=== PATIENT | female | born 1935 | race Hispanic/Latino ===

== ENCOUNTER → 2018-08-15 | Outpatient (CLI) | payer OTHER ==
[~2018-08-15] MED LIST: AMLO10TA7 PO; ASPI-1197 PO; ATOR10 PO; CLON0.1T PO; DOCU100T PO; FOLI1TAB85 PO; HYDR-4153 PO
== END | disposition home or self-care (01) ==
LOC: RAH 08:37
PROVIDERS: ATTEND Family Medicine
DX: I08.1 Rheumatic disorders of both mitral and tricuspid valves (principal); I27.20 Pulmonary hypertension, unspecified
CPT/HCPCS: 71250; 93306

== ENCOUNTER 2018-12-14 11:39 | Day surgery (SDC) | payer OTHER ==
[~2018-12-14] VITALS: Ht 152.4 cm; Wt 59.4 kg
[2018-12-14 12:45] VITALS: BP 116/57
[2018-12-14 13:11] LABS: BASOPHILS % (AUTO) 0.8 % (0.0-5.0); EOSINOPHILS % (AUTO) 8.9 % (0.0-8.0); HEMATOCRIT 32.3 % (36-48); LYMPHOCYTES % (AUTO) 14.3 % (21.0-51.0); MEAN CORPUSCULAR HEMOGLOBIN 34.7 pg (27.0-33.0); MEAN CORPUSCULAR HGB CONC 33.2 g/dL (32.0-36.0); MEAN CORPUSCULAR VOLUME 104.5 fL (79-99); MONOCYTES % (AUTO) 8.5 % (3.0-13.0); NEUTROPHILS % (AUTO) 67.5 % (40.0-77.0); NUCLEATED RED BLOOD CELLS 0.1 % (0.0-0.19); PLATELET COUNT (AUTO) 131 K/uL (130-400); RED BLOOD CELL COUNT(AUTO) 3.09 MIL/uL (4.00-5.50); RED CELL DISTRIBUTION WIDTH 14.9 % (11.0-15.5); WHITE BLOOD COUNT (AUTO) 6.5 K/uL (4.8-10.8)
[2018-12-14 13:22] LABS: INR 1.02 (0.85-1.15); PARTIAL THROMBOPLASTIN TIME 27.5 SEC (26.3-35.5); PROTHROMBIN TIME 10.7 SEC (9.6-11.6)
[2018-12-14 13:23] LABS: POTASSIUM 4.4 mmol/L (3.5-5.1)
[2018-12-14 13:26] LABS: CREATININE 7.9 mg/dL (0.5-1.5)
--- NOTE | 2018-12-14 13:45 | NUR ---
PATIENT TRANSFERRED PATIENT TAKEN TO BULLDOZER MECHANIC FOR FISTULOGRAM PROCEDURE BY RAZ NEGRON. DAUGHTER WAITING AT BEDSIDE.
[2018-12-14] MEDS ORDERED: IODIXANOL 320 MG/ML 100 ML VIAL ONE (13:53)
[2018-12-14] MEDS ORDERED: HEPARIN SODIUM 1000UNIT/ML 10ML VIAL ONE (13:53)
[2018-12-14] MEDS ORDERED: LIDOCAINE HCL 1% MDV 50ML VIAL ONE (13:54)
[2018-12-14] MEDS ORDERED: SODIUM BICARB 50MEQ 50ML VIAL ONE (13:55)
[2018-12-14 15:45] VITALS: BP 123/47
--- NOTE | 2018-12-14 15:45 | NUR ---
PATIENT RETURNED PATIENT BROUGHT BACK FROM THERAPEUTIC RECREATION ASSISTANT VIA BED BY RAZ NEGRON. PATIENT AAOX3, RESPIRATIONS UNLABORED, NO C/O PAIN. DRESSINF TO LEFT UPPER ARM DRY AND INTACT, NO REDNESS/SWELLING/BLEEDING NOTED. POSITIVE BRUIT AND THRILL NOTED TO LEFT FISTULA.
[2018-12-14 16:00] VITALS: BP 123/50
[2018-12-14 16:15] VITALS: BP 121/49
[2018-12-14 16:30] VITALS: BP 122/46
--- NOTE | 2018-12-14 16:30 | NUR ---
DISCHARGE INSTRUCTIONS: EXPLAINED DISCHARGE INSTRUCTIONS TO PATIENT AND PATIENT'S DAUGHTER. PROVIDED HANDOUTS AND ANSWERED ALL QUESTIONS/CONCERNS.
--- NOTE | 2018-12-14 16:32 | NUR ---
HANDOFF REPORT REPORT GIVEN TO KRITSIN COX RN USING SBAR. ALL QUESTIONS/CONCERNS ADDRESSED.
[2018-12-14 17:00] VITALS: BP 130/52
== END 2018-12-14 17:10 | disposition home or self-care (01) ==
LOC: DAH 11:39
PROVIDERS: ATTEND Family Medicine
DX: T82.858A Stenosis of other vascular prosthetic devices, implants and grafts, initial encounter (principal); Y83.8 Other surgical procedures as the cause of abnormal reaction of the patient, or of later complication, without mention of misadventure at the time of the procedure; I13.2 Hypertensive heart and chronic kidney disease with heart failure and with stage 5 chronic kidney disease, or end stage renal disease; I50.42 Chronic combined systolic (congestive) and diastolic (congestive) heart failure; E11.22 Type 2 diabetes mellitus with diabetic chronic kidney disease; N18.6 End stage renal disease; D63.1 Anemia in chronic kidney disease; I25.10 Atherosclerotic heart disease of native coronary artery without angina pectoris; E78.5 Hyperlipidemia, unspecified; Z98.890 Other specified postprocedural states; Z98.49 Cataract extraction status, unspecified eye; Z99.2 Dependence on renal dialysis; Z79.4 Long term (current) use of insulin; Z79.899 Other long term (current) drug therapy; Z79.01 Long term (current) use of anticoagulants; Z79.82 Long term (current) use of aspirin; Z83.3 Family history of diabetes mellitus
CPT/HCPCS: 36415; 36902; 80048; 82948 ×2; 85025; 85610; 85730; A4606; C1725; C1769 ×3; C1894 ×3; J1644 ×2; J3490 ×2; Q9967

== ENCOUNTER 2018-12-20 14:33 | Observation (INO) | payer OTHER ==
[~2018-12-20] VITALS: Ht 154.9 cm; Wt 59.6 kg
[2018-12-20 15:48] LABS: BASOPHILS % (AUTO) 0.7 % (0.0-5.0); EOSINOPHILS % (AUTO) 5.7 % (0.0-8.0); HEMATOCRIT 29.5 % (36-48); LYMPHOCYTES % (AUTO) 9.6 % (21.0-51.0); MEAN CORPUSCULAR HEMOGLOBIN 35.1 pg (27.0-33.0); MEAN CORPUSCULAR HGB CONC 33.7 g/dL (32.0-36.0); MEAN CORPUSCULAR VOLUME 104.1 fL (79-99); MONOCYTES % (AUTO) 9.8 % (3.0-13.0); NEUTROPHILS % (AUTO) 74.2 % (40.0-77.0); PLATELET COUNT (AUTO) 124 K/uL (130-400); RED BLOOD CELL COUNT(AUTO) 2.83 MIL/uL (4.00-5.50); RED CELL DISTRIBUTION WIDTH 15.2 % (11.0-15.5); WHITE BLOOD COUNT (AUTO) 6.1 K/uL (4.8-10.8)
[2018-12-20] MEDS ORDERED: SODIUM CHLORIDE 0.9% 250 ML IV ONE (15:49)
[2018-12-20] MEDS ORDERED: FENTANYL CITRATE PF 50 MCG/1 ML 2ML VIAL ONE ×3 (15:49→20:23)
[2018-12-20 15:51] LABS: CREATININE 3.4 mg/dL (0.5-1.5); POTASSIUM 3.5 mmol/L (3.5-5.1)
[2018-12-20 15:56] LABS: ALBUMIN 3.7 g/dL (3.5-5.0); BILIRUBIN,TOTAL 0.9 mg/dL (0.2-1.0); TOTAL PROTEIN, SERUM 7.1 g/dL (6.0-8.3)
[2018-12-20 16:02] LABS: INR 1.01 (0.85-1.15); PROTHROMBIN TIME 10.6 SEC (9.6-11.6)
[2018-12-20 16:39] LABS: PARTIAL THROMBOPLASTIN TIME 26.8 SEC (26.3-35.5)
[2018-12-20] MEDS ORDERED: HEPARIN SODIUM 1000UNIT/ML 10ML VIAL ONE (18:52)
[2018-12-20] MEDS ORDERED: NITROGLYCERIN 5 MG/ML 10 ML VIAL IV ONE (18:52)
[2018-12-20] MEDS ORDERED: IODIXANOL 320 MG/ML 100 ML VIAL ONE (18:53)
[2018-12-20] MEDS ORDERED: LIDOCAINE HCL 2% 20ML ONE (18:53)
[2018-12-20] MEDS ORDERED: HEPARIN 25000 UNITS/250 ML D5W 250 ML IV ONE (19:19)
[2018-12-20] MEDS ORDERED: HEPARIN SODIUM 5000UNIT/ML 1ML VIAL ONE (19:19)
[2018-12-20] MEDS ORDERED: HEPARIN 25,000 UNITS/250 ML IV PRN (20:15)
[2018-12-20] MEDS ORDERED: ONDANSETRON HCL 4 MG/2 ML VIAL IVP PRN (20:30)
[2018-12-20] MEDS ORDERED: HYDRALAZINE HCL 20 MG/ML VIAL IV PRN (20:30)
[2018-12-20] MEDS ORDERED: FENTANYL CITRATE PF 50 MCG/1 ML 2ML VIAL IVP PRN (20:30)
[2018-12-20 20:45] VITALS: BP 119/47
[2018-12-20] MEDS ORDERED: HEPARIN SODIUM 5000UNIT/ML 1ML VIAL IV PRN (20:45)
[2018-12-20 23:10] VITALS: BP 124/46
[2018-12-20] MEDS ORDERED: HYDR100T27 PO (23:44)
[2018-12-20] MEDS ORDERED: FLUT16H NS (23:44)
[2018-12-21 02:39] LABS: HEMATOCRIT 28.6 % (36-48); MEAN CORPUSCULAR HEMOGLOBIN 35.2 pg (27.0-33.0); MEAN CORPUSCULAR HGB CONC 33.3 g/dL (32.0-36.0); MEAN CORPUSCULAR VOLUME 105.7 fL (79-99); PLATELET COUNT (AUTO) 108 K/uL (130-400); RED BLOOD CELL COUNT(AUTO) 2.71 MIL/uL (4.00-5.50); RED CELL DISTRIBUTION WIDTH 15.3 % (11.0-15.5); WHITE BLOOD COUNT (AUTO) 6.5 K/uL (4.8-10.8)
[2018-12-21 03:10] VITALS: BP 129/50
[2018-12-21 03:14] LABS: ALBUMIN 3.5 g/dL (3.5-5.0); BILIRUBIN,TOTAL 0.8 mg/dL (0.2-1.0); CREATININE 4.5 mg/dL (0.5-1.5); MAGNESIUM 2.2 mg/dL (1.80-2.40); PHOSPHORUS 3.7 mg/dL (2.5-4.9); POTASSIUM 4.3 mmol/L (3.5-5.1); TOTAL PROTEIN, SERUM 6.7 g/dL (6.0-8.3)
[2018-12-21 03:21] LABS: TROPONIN I 1.29 ng/mL (0.00-0.06)
[2018-12-21 03:28] LABS: PLATELET MORPHOLOGY COMMENT LARGE PLTS PRESENT
[2018-12-21 08:02] VITALS: BP 137/53
[2018-12-21 11:55] VITALS: BP 137/49
[2018-12-21] MEDS ORDERED: LACTULOSE 20 GM/30 ML UDCUP PO PRN (14:45)
[2018-12-21 15:29] VITALS: BP 130/46
[2018-12-21 20:29] VITALS: BP 144/56
[2018-12-21] MEDS ORDERED: IOHEXOL 350 MG/ML 100ML INFUS..BTL IV ONE (21:35)
[2018-12-21] MEDS ORDERED: IOHEXOL-350 75 ML VIAL IV ONE (21:36)
[2018-12-21] MEDS ORDERED: IOHEXOL-350 50ML VIAL IV ONE (21:36)
[2018-12-21 23:21] VITALS: BP 97/48
[2018-12-22] MEDS: ACETAMINOPHEN 325 MG TAB PO PRN ×2 (01:12→16:35)
[2018-12-22 04:14] VITALS: BP 115/49
[2018-12-22 04:51] LABS: MEAN CORPUSCULAR HEMOGLOBIN 35.9 pg (27.0-33.0); MEAN CORPUSCULAR HGB CONC 34.5 g/dL (32.0-36.0); NUCLEATED RED BLOOD CELLS 0.1 % (0.0-0.19); PLATELET COUNT (AUTO) 112 K/uL (130-400); RED BLOOD CELL COUNT(AUTO) 2.79 MIL/uL (4.00-5.50); RED CELL DISTRIBUTION WIDTH 15.3 % (11.0-15.5); WHITE BLOOD COUNT (AUTO) 7.6 K/uL (4.8-10.8)
[2018-12-22 05:04] LABS: BASOPHILS % (MANUAL) 2 % (0-2); EOSINOPHILS % (MANUAL) 2 % (1-6); LYMPHOCYTES % (MANUAL) 6 % (22-44); MONOCYTES % (MANUAL) 7 % (2-9); SEGMENTED NEUTROPHILS % 83 % (40-70)
[2018-12-22 05:05] LABS: MAN.DIFF COMMENT-IMPRESSION MANUAL DIFFERENTIAL; PLATELET MORPHOLOGY COMMENT SLIGHTLY DECREASED
[2018-12-22 05:06] LABS: CREATININE 6.6 mg/dL (0.5-1.5); PHOSPHORUS 5.6 mg/dL (2.5-4.9); POTASSIUM 4.7 mmol/L (3.5-5.1)
[2018-12-22 07:00] VITALS: BP 147/43
[2018-12-22] MEDS ORDERED: ASPIRIN 81MG TAB.CHEW PO SCH (09:00)
[2018-12-22] MEDS ORDERED: CLOPIDOGREL BISULFATE 75 MG TAB PO SCH (09:00)
[2018-12-22 11:00] VITALS: BP 120/49
[2018-12-22] MEDS: CILOSTAZOL 100 MG TAB PO SCH ×2 (12:05→22:17)
[2018-12-22 16:00] VITALS: BP 109/48
[2018-12-22] MEDS ORDERED: LIDOCAINE/PRILOCAINE CREAM 5GM TUBE TP STA (17:17)
[2018-12-22 19:50] VITALS: BP 153/67
== END 2018-12-22 23:45 | disposition home or self-care (01) ==
LOC: EDH 14:33 → INTOOBSV 19:32 → EDHIP 19:32 → 2AH 20:54
PROVIDERS: ADMIT Internal Medicine Critical Care Medicine; ATTEND Internal Medicine Critical Care Medicine
DX: I99.8 Other disorder of circulatory system (principal); I12.0 Hypertensive chronic kidney disease with stage 5 chronic kidney disease or end stage renal disease; N18.6 End stage renal disease; E11.22 Type 2 diabetes mellitus with diabetic chronic kidney disease; E11.21 Type 2 diabetes mellitus with diabetic nephropathy; E11.51 Type 2 diabetes mellitus with diabetic peripheral angiopathy without gangrene; D64.9 Anemia, unspecified; E78.5 Hyperlipidemia, unspecified; I25.10 Atherosclerotic heart disease of native coronary artery without angina pectoris; I25.2 Old myocardial infarction; I25.5 Ischemic cardiomyopathy; I27.20 Pulmonary hypertension, unspecified; I34.0 Nonrheumatic mitral (valve) insufficiency; Z95.5 Presence of coronary angioplasty implant and graft; Z99.2 Dependence on renal dialysis; Z79.899 Other long term (current) drug therapy
CPT/HCPCS: 36415; 70450; 71045; 75635; 80048; 80053; 82550; 82948; 83735; 83874; 84100; 84484; 85025; 85027; 85610; 85730; 90935; 93005; 93926; 96365; 96375; 99291; G0257; G0378; J1644; J3010; J3490; J7030; Q9967

== ENCOUNTER 2019-01-14 06:28 | Inpatient (IN) | payer OTHER ==
[2019-01-11 09:31] VITALS: BP 137/58
[2019-01-11 09:48] LABS: CREATININE 4.4 mg/dL (0.5-1.5); POTASSIUM 3.7 mmol/L (3.5-5.1)
[2019-01-11 09:57] LABS: INR 1.03 (0.85-1.15); PARTIAL THROMBOPLASTIN TIME 26.3 SEC (26.3-35.5); PROTHROMBIN TIME 10.8 SEC (9.6-11.6)
[2019-01-11 10:35] LABS: BASOPHILS % (AUTO) 1.3 % (0.0-5.0); EOSINOPHILS % (AUTO) 1.2 % (0.0-8.0); LYMPHOCYTES % (AUTO) 6.8 % (21.0-51.0); MEAN CORPUSCULAR HEMOGLOBIN 35.8 pg (27.0-33.0); MEAN CORPUSCULAR HGB CONC 33.6 g/dL (32.0-36.0); MEAN CORPUSCULAR VOLUME 106.5 fL (79-99); MONOCYTES % (AUTO) 8.4 % (3.0-13.0); NEUTROPHILS % (AUTO) 82.3 % (40.0-77.0); NUCLEATED RED BLOOD CELLS 0.1 % (0.0-0.19); PLATELET COUNT (AUTO) 122 K/uL (130-400); RED BLOOD CELL COUNT(AUTO) 2.82 MIL/uL (4.00-5.50); RED CELL DISTRIBUTION WIDTH 15.2 % (11.0-15.5); WHITE BLOOD COUNT (AUTO) 6.1 K/uL (4.8-10.8)
--- NOTE | 2019-01-11 15:21 | NUR ---
ABNORMAL LABS ABNORMAL LABS REPORTED TO Ronen CENTENO FOR DR. SOLOMON. HGB 10.1, HCT 30.0, PLT 122, BUN 35, CREAT 4.4. NO FURTHER ORDERS GIVEN, MAY PROCEED WITH PLANNED PROCEDURE. ALSO NOTIFIED TARYN RENDON PT UNABLE TO OBTAIN URINE SPECIMEN.
[2019-01-11 16:35] VITALS: BP 137/58
[~2019-01-14] VITALS: Ht 149.9 cm; Wt 62.6 kg
[2019-01-14] VITALS (57 sets, daily range): BP systolic 73–151; BP diastolic 28–98
[~2019-01-14 06:28] MED LIST changes: -AMLO10TA7 PO; -ATOR10 PO; +CILO50TA PO; -CLON0.1T PO; +CLOP75TA14 PO; +ESOM40CA54 PO; +HYDR-4060 PO; -HYDR-4153 PO; +HYDR-4154 PO; +INSLAN SQ; +NITR0.4T50 SL; +SODIUM CHLORIDE 0.9% 500ML 500 ML IV SCH
[2019-01-14] MEDS ORDERED: SODIUM CHLORIDE 0.9% 1000ML 1,000 ML IV ONE (07:23)
--- NOTE | 2019-01-14 07:30 | NUR ---
ASSESSMENT HX: CONSTIPATION, TAKING MIRALAX AT HOME. MULTIPLE AREAS OF BRUISING TO UPPER EXTREMITIES (PT ON BLOOD THINNERS). DISTAL ANTERIOR RLE WITH REDNESS/FOOT WARM TO TOUCH. 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
--- NOTE | 2019-01-14 07:30 | NUR ---
PRE-PROCEDURE RECEIVED FROM HOME VIA W/C TO DAY 16 FOR PERIPHERAL ANGIOGRAM WITH FIRING PIN GAUGER/STENT RIGHT LOWER EXTREMITY ACCOMPANIED BY DAUGHTERS. AWAKE IN NO ACUTE DISTRESS. DENIES PAIN AT PRESENT TIME. CONNECTED TO CONTINUOUS CARDIOPULMONARY MONITORING. SIDE RAILS UP X2, BED IN LOWEST POSITION, AND CALL LIGHT W/IN REACH.
[2019-01-14] MEDS ORDERED: CALC667C10 PO (09:06)
[2019-01-14] MEDS ORDERED: PEG15DRO4 OP (09:06)
[2019-01-14] MEDS ORDERED: MELA5CAP PO (09:08)
[2019-01-14] MEDS ORDERED: POLY17PO4 PO (09:11)
[2019-01-14] MEDS ORDERED: FLUT16H NASAL (09:16)
[2019-01-14] MEDS ORDERED: HEPARIN SODIUM 1000UNIT/ML 10ML VIAL ONE (10:01)
[2019-01-14] MEDS ORDERED: NITROGLYCERIN 5 MG/ML 10 ML VIAL IV ONE (10:01)
[2019-01-14] MEDS ORDERED: IODIXANOL 320 MG/ML 100 ML VIAL ONE (10:01)
[2019-01-14] MEDS ORDERED: LIDOCAINE HCL 2% 20ML ONE (10:02)
[2019-01-14] MEDS ORDERED: MIDAZOLAM HCL 1 MG/ML 2ML VIAL ONE ×2 (10:07→19:07)
[2019-01-14] MEDS ORDERED: FENTANYL CITRATE PF 50 MCG/1 ML 2ML VIAL ONE ×3 (10:07→16:25)
--- NOTE | 2019-01-14 10:11 | NUR ---
PROCEDURE TRANSFERRED TO OFFICE RUNNER VIA BED FOR PERIPHERAL ANGIOGRAM/FANS CLERK/STENT RIGHT LOWER EXTREMITY. UNABLE TO GET IV WILL BE ATTEMPTED IN OFFICE RUNNER WITH ULTRASOUND.
[2019-01-14] MEDS ORDERED: HYDRALAZINE HCL 20 MG/ML VIAL IV PRN (11:45)
[2019-01-14] MEDS ORDERED: METOPROLOL TARTRATE 1 MG/ML 5ML VIAL IV PRN (11:45)
[2019-01-14] MEDS ORDERED: DEXTROSE 50%-WATER 50 ML DISP.SYRIN IV PRN (11:45)
[2019-01-14] MEDS ORDERED: ACETAMINOPHEN-CODEINE 300/30MG TAB PO PRN (11:45)
[2019-01-14] MEDS ORDERED: GLUCAGON 1MG KIT 1 MG ML IM PRN ×2 (11:45→13:30)
--- NOTE | 2019-01-14 12:00 | NUR ---
POST-PROCEDURE RECEIVED BACK FROM CUST[employer]S [facility]OKER VIA BED BY RAZ FLYNN S/P ABD. AORTOGRAM, BLE RUNOFF WITH STENT PLACEMENT/6F SHEATH TO LEFT GROIN, SITE WITH LARGE HEMATOMA AND SWELLING/MANUAL PRESSURE APPLIED BY RAZ FLYNN/CONNECTED TO CONTINUOUS CARDIOPULMONARY MONITORING/AWAKE IN NO ACUTE DISTRESS.
[2019-01-14] MEDS ORDERED: ATROPINE SULFATE 0.1 MG/ML 10 ML SYG IVP ONE (12:30)
[2019-01-14] MEDS ORDERED: HYDRALAZINE HCL 25 MG TABLET PO SCH (14:00)
[2019-01-14] MEDS: CALCIUM ACETATE 667 MG CAPSULE PO SCH ×2 (14:00→21:00)
[2019-01-14 14:38] LABS: HEMATOCRIT 25.3 % (36-48)
[2019-01-14] MEDS ORDERED: DOPAMINE HCL 400 MG/D5%-WATER 250 ML IV ONE (15:24)
[2019-01-14] MEDS ORDERED: BACITRACIN 50,000 UNIT VIAL ONE ×2 (15:37→16:22)
--- NOTE | 2019-01-14 16:00 | NUR ---
blood 1st unit of prbc started at this time witness by Wandy treviño Rn. consent verified .
[2019-01-14] MEDS ORDERED: THROMBIN-JMI 20000 UNIT KIT TP ONE (16:22)
[2019-01-14] MEDS ORDERED: ONDANSETRON HCL 4 MG/2 ML VIAL ONE (16:25)
[2019-01-14] MEDS: INSULIN HUMULIN R 100 UNIT/ML 3ML SQ SCH ×2 (16:30→21:00)
--- NOTE | 2019-01-14 16:41 | NUR ---
blood 1st unit of prbc completed at this time. pt kareem well. no adverse reactions noted.
[2019-01-14] MEDS ORDERED: CEFAZOLIN SODIUM 1 GM VIAL IVP PRN (16:45)
--- NOTE | 2019-01-14 17:10 | NUR ---
RECEIVED PT FROM DAY SURGERY DEPT. STAFF. BEDSIDE REPORT WAS RECEIVED. PT ON DOPAMINE [id number]/KG/MIN TO .LEFT UPPER ARM SECOND UNIT OF PRBC INFUSING LEFT WRIST. PLEASE REFER TO BLOOD FORM FOR V/S
--- NOTE | 2019-01-14 17:20 | NUR ---
PT TAKEN TO SURGERY BY O.R. STAFF. REFER TO BLOOD FORM FOR V/S. PT WAS AWAKE AND ALERT ON DEPARTURE.
[2019-01-14] MEDS ORDERED: SUCCINYLCHOLINE 200MG/10ML SYR ONE (17:29)
[2019-01-14] MEDS ORDERED: ETOMIDATE 2 MG/ML 10 ML VIAL ONE (17:29)
--- NOTE | 2019-01-14 17:43 | NUR ---
PT FAMILY ON SECOND FLOOR WAITING ROOM THEY WERE INFORMED THAT PT IS IN SURGERY NOW
[2019-01-14] MEDS ORDERED: SODIUM BICARB 50MEQ 50ML VIAL ONE (17:56)
[2019-01-14 17:57] LABS: ABG BASE EXCESS -5.8 mmol/L (-2.0-3.0); ABG PCO2 25 mmHg (32-45)
[2019-01-14] MEDS ORDERED: ROCURONIUM 10MG/1ML SYR 10 MG/ML ML ONE (17:59)
[2019-01-14] MEDS ORDERED: LIDOCAINE PF 2% 5ML ABBOJECT ONE (18:59)
[2019-01-14] MEDS ORDERED: SODIUM BICARB 8.4% 50ML SYRINGE ONE (18:59)
[2019-01-14] MEDS ORDERED: NOREPINEPHRINE BITARTRATE 1 MG/1 ML ML IV ONE (18:59)
[2019-01-14] MEDS ORDERED: FENTANYL CITRATE PF 50 MCG/1 ML 5ML AMP IV ONE (19:07)
[2019-01-14 19:17] LABS: ABG BASE EXCESS 4.2 mmol/L (-2.0-3.0); ABG HCO3 27.7 mmol/L (21.0-28.0); ABG OXYGEN SATURATION 97.9 % (95.0-99.0); ABG PCO2 38 mmHg (32-45)
[2019-01-14] MEDS ORDERED: BACITRACIN 28.4 GM OINT TP ONE (19:20)
--- NOTE | 2019-01-14 19:32 | NUR ---
RECEIVED FROM O.R. INTO ICU 216 INTUBATED;NON-RESPONSIVE. SBP80/42 HR 85 SINUS RHYTHM. R.T. HERE AND CONNECTED ET TUBE TO VENT ON PRESCRIBED VENT SETTINGS. LEVOPHED INFUSING AT 5MCG/MIN. WILL ADJUST FOR BP CONTROL. DR BADILLO HERE, ORDERED 250ML OF ALBUMIN IV AND STATED THERE ARE 2 MORE UNITS OF FFP'S PENDING. LEFT GROIN WITH PRESSURE DRESSING DRY & INTACT. PALPABLE BILATERAL PEDAL PULSES. FULL ASSESSMENT DOCUMENTED.
[2019-01-14] MEDS ORDERED: ALBUMIN (HUMAN) 5% 250 ML IV ONE (19:39)
[2019-01-14 19:54] LABS: HEMATOCRIT 29.2 % (36-48); MEAN CORPUSCULAR HEMOGLOBIN 30.5 pg (27.0-33.0); MEAN CORPUSCULAR HGB CONC 34.1 g/dL (32.0-36.0); MEAN CORPUSCULAR VOLUME 89.4 fL (79-99); NUCLEATED RED BLOOD CELLS 0.1 % (0.0-0.19); PLATELET COUNT (AUTO) 158 K/uL (130-400); RED BLOOD CELL COUNT(AUTO) 3.27 MIL/uL (4.00-5.50); RED CELL DISTRIBUTION WIDTH 16.4 % (11.0-15.5); WHITE BLOOD COUNT (AUTO) 21.6 K/uL (4.8-10.8)
--- NOTE | 2019-01-14 20:03 | NUR ---
DR DAVIS HERE TO SEE PATIENT UPDATED. FAMILY IN ROOM. HE SPOKE TO THEM REGARDING SURGERY PROCEDURE AND OUTCOME. INSTRUCTED THEM ON PLAN OF CARE. QUESTIONS ANSWERED IN DETAIL. BILATERAL PEDAL PULSES PRESENT PER DOPPLER.
[2019-01-14 20:08] LABS: CREATININE 4.7 mg/dL (0.5-1.5); POTASSIUM 3.9 mmol/L (3.5-5.1)
[2019-01-14] MEDS ORDERED: PROPOFOL 1000 MG/100 ML 100 ML IV ONE (20:34)
[2019-01-14] MEDS ORDERED: DOCUSATE SODIUM 100 MG CAP PO SCH (21:00)
[2019-01-14 21:16] LABS: ABG BASE EXCESS -0.7 mmol/L (-2.0-3.0); ABG OXYGEN SATURATION 99.4 % (95.0-99.0); ABG PCO2 31 mmHg (32-45)
[2019-01-14 22:40] LABS: HEMATOCRIT 23.7 % (36-48)
--- NOTE | 2019-01-14 22:40 | NUR ---
NOTIFIED DR DAVIS OF H&H 8.2/23.7 INFORMED HIM THAT H&H IMMEDIATE POST OP AND ON ARRIVAL TO ICU WAS 10.0/29.2. ALSO INFORMED HIM THAT SURGICAL SITE AND LEFT INNER THIGH LOOKS MORE SWOLLEN. ORDERED TO COVER AREA WITH A PRESSURE DRESSING.
[2019-01-14 22:57] LABS: INR 1.17 (0.85-1.15); PARTIAL THROMBOPLASTIN TIME 26.6 SEC (26.3-35.5); PROTHROMBIN TIME 12.2 SEC (9.6-11.6)
[2019-01-14] MEDS ORDERED: SODIUM CHLORIDE 0.9% 250 ML IV ONE (22:59)
[2019-01-15] VITALS (44 sets, daily range): BP systolic 97–168; BP diastolic 36–78
[2019-01-15] MEDS ORDERED: PROPOFOL 1000 MG/100 ML 100 ML IV ONE ×2 (02:09→06:26)
[2019-01-15 03:45] LABS: MEAN CORPUSCULAR HEMOGLOBIN 30.8 pg (27.0-33.0); MEAN CORPUSCULAR HGB CONC 34.6 g/dL (32.0-36.0); MEAN CORPUSCULAR VOLUME 88.9 fL (79-99); NUCLEATED RED BLOOD CELLS 0.1 % (0.0-0.19); PLATELET COUNT (AUTO) 151 K/uL (130-400); RED CELL DISTRIBUTION WIDTH 16.8 % (11.0-15.5); WHITE BLOOD COUNT (AUTO) 11.3 K/uL (4.8-10.8)
[2019-01-15 04:12] LABS: HEMATOCRIT 19.6 % (36-48)
--- NOTE | 2019-01-15 04:15 | NUR ---
NOTIFIED DR DAVIS OF H&H 6.8.6 LEFT FEMORAL AND THIGH AREA UNCHANGED WITH PRESSURE DRESSING DRY & INTACT. ORDERED TO TRANSFUSE 2 UNITS PRBC.
[2019-01-15 04:20] LABS: ABG BASE EXCESS 2.2 mmol/L (-2.0-3.0); ABG HCO3 23.1 mmol/L (21.0-28.0); ABG OXYGEN SATURATION 99.3 % (95.0-99.0); ABG PCO2 27 mmHg (32-45)
[2019-01-15 04:23] LABS: CREATININE 5.2 mg/dL (0.5-1.5); POTASSIUM 3.9 mmol/L (3.5-5.1)
[2019-01-15] MEDS ORDERED: SODIUM CHLORIDE 0.9% 250 ML IV ONE (04:35)
[2019-01-15 05:00] LABS: INR 1.13 (0.85-1.15); PARTIAL THROMBOPLASTIN TIME 26.4 SEC (26.3-35.5); PROTHROMBIN TIME 11.8 SEC (9.6-11.6)
[2019-01-15] MEDS: INSULIN HUMULIN R 100 UNIT/ML 3ML SQ SCH ×3 (06:29→21:00)
[2019-01-15] MEDS ORDERED: PROPOFOL 1000 MG/100 ML IV PRN (06:30)
[2019-01-15] MEDS ORDERED: CALCIUM GLUCONATE 1 GM in SODIUM CHLORIDE 0.9% 50 ML IV PRN (07:45)
[2019-01-15] MEDS: PANTOPRAZOLE SODIUM 40 MG TABLET.DR PO SCH (09:00)
[2019-01-15] MEDS: POLYETHYLENE GLYCOL 3350 17 GM POWD.PACK PO SCH (09:00)
[2019-01-15] MEDS ORDERED: CLOPIDOGREL BISULFATE 75 MG TAB PO SCH (09:00)
[2019-01-15] MEDS ORDERED: ASPIRIN 81MG TAB.CHEW PO SCH (09:00)
[2019-01-15 10:57] LABS: HEMATOCRIT 28.7 % (36-48)
--- NOTE | 2019-01-15 11:37 | NUR ---
KEITH PLAN PATIENT VENTED SON IN LAW IN ROOM. PATIENT LIVES ALONE. INDEPENDENT ABLE TO PERFORM ADL'S. PATIENT HAS NO SERVICES. WALKER WITH WHEELS. TASHA WILL CONTINUE TO FOLLOW. Addendum: 01/15/19 at 1139 by ZANE LOYD RN CM Amended: Links added.
[2019-01-15] MEDS: PROPOFOL 1000 MG/100 ML 100 ML IV PRN ×2 (14:17→22:02)
--- NOTE | 2019-01-15 14:24 | NUR ---
10:15 HOLD Physical Therapy Evaluation today.Per ArnavRN - patient is bleeding to her left groin area. Addendum: 01/15/19 at 1426 by LAM VALENTINE, PT PT Amended: Links added.
[2019-01-15 14:30] LABS: HEMATOCRIT 28.5 % (36-48)
[2019-01-15] MEDS ORDERED: SODIUM CHLORIDE 0.9% 1000ML 1,000 ML IV PRN (15:45)
[2019-01-15] MEDS ORDERED: 0.9% SODIUM CHLORIDE 1000 ML IV BAG IV PRN (15:45)
[2019-01-15 21:41] LABS: HEMATOCRIT 26.7 % (36-48)
[2019-01-16] VITALS (32 sets, daily range): BP systolic 99–170; BP diastolic 34–84
[2019-01-16 03:58] LABS: ABG BASE EXCESS 4.5 mmol/L (-2.0-3.0); ABG HCO3 25.3 mmol/L (21.0-28.0); ABG OXYGEN SATURATION 99.2 % (95.0-99.0); ABG PCO2 28 mmHg (32-45)
[2019-01-16 04:33] LABS: CREATININE 3.6 mg/dL (0.5-1.5); MAGNESIUM 1.7 mg/dL (1.80-2.40); POTASSIUM 3.7 mmol/L (3.5-5.1)
[2019-01-16 04:50] LABS: HEMATOCRIT 26.5 % (36-48); MEAN CORPUSCULAR HEMOGLOBIN 31.3 pg (27.0-33.0); MEAN CORPUSCULAR HGB CONC 35.4 g/dL (32.0-36.0); MEAN CORPUSCULAR VOLUME 88.5 fL (79-99); PLATELET COUNT (AUTO) 108 K/uL (130-400); RED BLOOD CELL COUNT(AUTO) 2.99 MIL/uL (4.00-5.50); RED CELL DISTRIBUTION WIDTH 15.9 % (11.0-15.5); WHITE BLOOD COUNT (AUTO) 10.4 K/uL (4.8-10.8)
[2019-01-16] MEDS: PROPOFOL 1000 MG/100 ML 100 ML IV PRN (05:35)
[2019-01-16] MEDS: INSULIN HUMULIN R 100 UNIT/ML 3ML SQ SCH ×4 (07:30→21:00)
[2019-01-16] MEDS: PANTOPRAZOLE SODIUM 40 MG TABLET.DR PO SCH (07:41)
[2019-01-16] MEDS: POLYETHYLENE GLYCOL 3350 17 GM POWD.PACK PO SCH (07:41)
[2019-01-16 08:25] LABS: HEPATITIS A ANTIBODY IGM Negative (Negative); HEPATITIS B CORE IGM Negative (Negative); HEPATITIS Bs ANTIGEN SCREEN P Negative (Negative)
--- NOTE | 2019-01-16 13:26 | NUR ---
1100 Hold PT Evaluation today, per RAZ Marquis Addendum: 01/16/19 at 1328 by LAM VALENTINE PT PT Amended: Links added.
[2019-01-16] MEDS: FAMOTIDINE/PF 20 MG/2 ML VIAL IV SCH (20:13)
--- NOTE | 2019-01-16 21:30 | NUR ---
Patient converted from atrial fibrillation to sinus rhythm earlier. Denies pain, sob. Bedside glucometer 116. No insulin coverage. Call light and needed items readily at hand. Encouraged to call prn. Addendum: 01/17/19 at 0113 by MATTHIAS LLAMAS RN RN Please disregard above note. Not on correct patient.
[2019-01-17] VITALS (25 sets, daily range): BP systolic 107–155; BP diastolic 35–70
[2019-01-17 05:04] LABS: BASOPHILS % (AUTO) 0.5 % (0.0-5.0); EOSINOPHILS % (AUTO) 0.1 % (0.0-8.0); HEMATOCRIT 27.9 % (36-48); LYMPHOCYTES % (AUTO) 3.9 % (21.0-51.0); MEAN CORPUSCULAR HEMOGLOBIN 31.3 pg (27.0-33.0); MEAN CORPUSCULAR HGB CONC 34.3 g/dL (32.0-36.0); MEAN CORPUSCULAR VOLUME 91.1 fL (79-99); MONOCYTES % (AUTO) 6.8 % (3.0-13.0); NEUTROPHILS % (AUTO) 88.7 % (40.0-77.0); NUCLEATED RED BLOOD CELLS 0.1 % (0.0-0.19); PLATELET COUNT (AUTO) 108 K/uL (130-400); RED BLOOD CELL COUNT(AUTO) 3.06 MIL/uL (4.00-5.50); RED CELL DISTRIBUTION WIDTH 16.5 % (11.0-15.5); WHITE BLOOD COUNT (AUTO) 13.8 K/uL (4.8-10.8)
[2019-01-17 05:16] LABS: INR 1.02 (0.85-1.15); PARTIAL THROMBOPLASTIN TIME 29.2 SEC (26.3-35.5); PROTHROMBIN TIME 10.7 SEC (9.6-11.6)
[2019-01-17 05:34] LABS: ALBUMIN 2.6 g/dL (3.5-5.0); BILIRUBIN,TOTAL 1.1 mg/dL (0.2-1.0); PHOSPHORUS 4.9 mg/dL (2.5-4.9); POTASSIUM 4.4 mmol/L (3.5-5.1); TOTAL PROTEIN, SERUM 5.5 g/dL (6.0-8.3)
[2019-01-17] MEDS: INSULIN HUMULIN R 100 UNIT/ML 3ML SQ SCH ×4 (06:34→21:00)
[2019-01-17] MEDS: POLYETHYLENE GLYCOL 3350 17 GM POWD.PACK PO SCH (08:33)
[2019-01-17] MEDS: PANTOPRAZOLE SODIUM 40 MG TABLET.DR PO SCH (08:33)
[2019-01-17 10:34] LABS: ABG BASE EXCESS 2.2 mmol/L (-2.0-3.0); ABG HCO3 25.4 mmol/L (21.0-28.0); ABG OXYGEN SATURATION 98.8 % (95.0-99.0); ABG PCO2 35 mmHg (32-45)
--- NOTE | 2019-01-17 11:06 | NUR ---
HD PATIENT HD BEGAN TODAY AT 0806 AND ENDED AT 1106; 1.9L REMOVED; PATIENT TOLERATED HD WELL; NO ISSUES NOTED
--- NOTE | 2019-01-17 11:50 | NUR ---
EXTUBATED PATIENT EXTUBATED AT THIS TIME AND PLACED ON CAM; PATIENT RESTING COMFORTABLY IN BED; NO DISTRESS NOTED
--- NOTE | 2019-01-17 15:13 | NUR ---
PER NURSING TO HOLD PT EVALUATION THIS PM- PATIENT WAS EXTUBATED COUPLE OF MINUTES AGO. IN AM- PATIENT WAS ON DIALYSIS. Addendum: 01/17/19 at 1515 by LAM VALENTINE, PT PT Amended: Links added.
[2019-01-17] MEDS: ATORVASTATIN CALCIUM 20 MG TABLET PO SCH (20:38)
[2019-01-17] MEDS: FAMOTIDINE/PF 20 MG/2 ML VIAL IV SCH (20:44)
[2019-01-18] VITALS (24 sets, daily range): BP systolic 90–149; BP diastolic 38–75
[2019-01-18 05:25] LABS: HEMATOCRIT 25.7 % (36-48); MEAN CORPUSCULAR HEMOGLOBIN 31.5 pg (27.0-33.0); MEAN CORPUSCULAR HGB CONC 34.3 g/dL (32.0-36.0); PLATELET COUNT (AUTO) 98 K/uL (130-400); WHITE BLOOD COUNT (AUTO) 8.9 K/uL (4.8-10.8)
[2019-01-18 05:38] LABS: CREATININE 3.8 mg/dL (0.5-1.5); POTASSIUM 4.2 mmol/L (3.5-5.1)
[2019-01-18 05:41] LABS: INR 1.02 (0.85-1.15); PARTIAL THROMBOPLASTIN TIME 30.1 SEC (26.3-35.5); PROTHROMBIN TIME 10.7 SEC (9.6-11.6)
[2019-01-18] MEDS: INSULIN HUMULIN R 100 UNIT/ML 3ML SQ SCH ×4 (05:58→22:34)
--- NOTE | 2019-01-18 08:10 | NUR ---
PT IS AWAKE AND ALERT. HOB ELEVATED 30 DEGREES. LT GROIN INCISIONS X2 WITH SUTURES INTAACT. AREA CLEANSED WITH NS AND COVERED WITH LIGHT 4X4 DRESSING AND PAPER TAPE. PT PENDING A SWALLOW EVAL. WILL GIVE PO MEDS ONCE THAT IS DONE. NPO FOR NOW. PULSES ARE WEAK AND PALPABLE TO BOTH FEET. POSITIVE DOPPLER SOUNDS. DAUGHTER AT BEDSIDE. PLAN OF CARE DISCUSSED. DR MIRANDA MADE ROUNDS THIS AM AND ORDERED A BILATERAL VENOUS DOPPLER
--- NOTE | 2019-01-18 08:42 | NUR ---
DR VALDEZ RACE CAR MECHANIC FOR DR MONDRAGON NOTIFIED THAT PT ADMITTED TO SERVICE, HE WILL COME TO SEE PT JORDI
--- NOTE | 2019-01-18 09:30 | NUR ---
DYSPHAGIA EVAL COMPLETED. -S/S OF ASPIRATION. RECOMMEND MECHANICAL SOFT/CHOPPED, THIN LIQUIDS; PILLS WHOLE WITH LIQUIDS. Addendum: 01/18/19 at 1258 by LUBA DOW, [facility], [address] Amended: Links added.
[2019-01-18] MEDS ORDERED: POLYETHYLENE GLYCOL 3350 17 GM POWD.PACK ONE (10:05)
[2019-01-18] MEDS ORDERED: PANTOPRAZOLE SODIUM 40 MG TABLET.DR PO ONE (10:06)
[2019-01-18] MEDS: ASPIRIN 81MG TAB.CHEW PO SCH (10:07)
[2019-01-18] MEDS: POLYETHYLENE GLYCOL 3350 17 GM POWD.PACK PO SCH (10:07)
[2019-01-18] MEDS: PANTOPRAZOLE SODIUM 40 MG TABLET.DR PO SCH (10:07)
--- NOTE | 2019-01-18 13:00 | NUR ---
A-LINE LEFT WRIST REMOVED INTACT- NO HEMATOMA OR BLEEDING FORMED. LEFT WRIST IV ALSO REMOVED INTACT Addendum: 01/18/19 at 1426 by SRAVANTHI NIETO RN RN DR VALDEZ NEPHROLOGY CAME TO SEE PATIENT
--- NOTE | 2019-01-18 16:30 | NUR ---
PT HAD FECAL IMPACTION- DIGITALLY REMOVED BY MARYLOU CRANDALL. LARGE AMT HARD BROWN STOOL EVACUATED.
[2019-01-18] MEDS ORDERED: INSULIN HUMULIN R 100 UNIT/ML 3ML ONE ×2 (16:39→22:23)
[2019-01-18] MEDS: ATORVASTATIN CALCIUM 20 MG TABLET PO SCH (22:25)
[2019-01-19] VITALS (16 sets, daily range): BP systolic 93–128; BP diastolic 42–58
[2019-01-19] MEDS ORDERED: INSULIN HUMULIN R 100 UNIT/ML 3ML ONE (06:21)
[2019-01-19] MEDS: INSULIN HUMULIN R 100 UNIT/ML 3ML SQ SCH ×4 (06:25→21:00)
[2019-01-19] MEDS ORDERED: SODIUM CHLORIDE 0.9% 250 ML IV ONE (07:40)
[2019-01-19 07:42] LABS: INR 1.33 (0.85-1.15); PROTHROMBIN TIME 13.9 SEC (9.6-11.6)
[2019-01-19 07:46] LABS: BASOPHILS % (AUTO) 0.3 % (0.0-5.0); EOSINOPHILS % (AUTO) 0.1 % (0.0-8.0); HEMATOCRIT 30.3 % (36-48); LYMPHOCYTES % (AUTO) 3.3 % (21.0-51.0); MEAN CORPUSCULAR HEMOGLOBIN 31.5 pg (27.0-33.0); MEAN CORPUSCULAR HGB CONC 33.4 g/dL (32.0-36.0); MEAN CORPUSCULAR VOLUME 94.3 fL (79-99); MONOCYTES % (AUTO) 8.7 % (3.0-13.0); NEUTROPHILS % (AUTO) 87.6 % (40.0-77.0); NUCLEATED RED BLOOD CELLS 0.1 % (0.0-0.19); PLATELET COUNT (AUTO) 98 K/uL (130-400); RED BLOOD CELL COUNT(AUTO) 3.22 MIL/uL (4.00-5.50); RED CELL DISTRIBUTION WIDTH 16.6 % (11.0-15.5); WHITE BLOOD COUNT (AUTO) 13.7 K/uL (4.8-10.8)
[2019-01-19] MEDS: CALCIUM ACETATE 667 MG CAPSULE PO SCH ×3 (08:00→18:01)
--- NOTE | 2019-01-19 08:01 | NUR ---
PT TODAY IS MORE LETHARGIC AND CONFUSED. PHOSLO NOT GIVEN SHE IS NOT GOING TO EAT BREAKFAST. HEMODIALYSIS THERAPY FIRST AND WILL GIVE AM MEDS AFTER HER TREATMENT. SHE HAS HAD A BM X1 SMALL AMT BROWN LOOSE. DR DAVIS WAS CALLED AND INFORMED OF H/H RESULTS .06/20.3- WILL HOLD BLOOD TRANSFUSION TODAY
[2019-01-19] MEDS: POLYETHYLENE GLYCOL 3350 17 GM POWD.PACK PO SCH (08:28)
[2019-01-19 09:11] LABS: CREATININE 3.4 mg/dL (0.5-1.5); POTASSIUM 4.2 mmol/L (3.5-5.1)
[2019-01-19] MEDS: MUPIROCIN OINTMENT 22 GM TUBE TP SCH (11:44)
[2019-01-19] MEDS: PANTOPRAZOLE SODIUM 40 MG TABLET.DR PO SCH (11:45)
[2019-01-19] MEDS: ASPIRIN 81MG TAB.CHEW PO SCH (11:45)
--- NOTE | 2019-01-19 12:16 | NUR ---
PT HAS COMPLETED HER DIALYSIS THIS AM WITHOUT COMPLICATION. SHE IS NOW DROWSY AND WEAK. SHE DID NOT WANT TO EAT RIGHT NOW. WANTS TO SLEEP. I CHANGED HER DRESSING TO LEFT GROIN- SUTURED INCISIONS X 2 INTACT , THERE IS A LARGE FLUID FILLED BLISTERED VESICLE TO INNER THIGH BRUISE. AREAS CLEANSED WITH NS THEN MUPIROCIN OINT APPLIED TO AFFECTED AREAS,COVERED LIGHTLY WITH 4X4/ABD PADS AND SECURED WITH MINIMAL AMT OF PAPER TAPE.
--- NOTE | 2019-01-19 14:52 | NUR ---
PT TRANSFERRED TO ROOM 223. HAND OFF REPORT GIVEN TO CHRISTIN CRANDALL
[2019-01-19] MEDS ORDERED: QUETIAPINE FUMARATE 25 MG TAB PO PRN (15:15)
[2019-01-19] MEDS ORDERED: DILTIAZEM HCL 60 MG TABLET PO SCH (21:00)
[2019-01-19] MEDS: DOCUSATE SODIUM 100 MG CAP PO SCH (22:00)
[2019-01-19] MEDS: ATORVASTATIN CALCIUM 20 MG TABLET PO SCH (22:37)
--- NOTE | 2019-01-19 23:20 | NUR ---
DR. DAVIS ROUNDED ON PT. ASSESSED PEDAL PULSES. NOTABLE. PT STATED NO PAIN. SORENESS TO LEFT LEG. BRUISING ON UPPER LEFT LEG NOTED. DAILY WOUND CARE COMPLETE BY CHRISTIN CRANDALL. STATED NO TRIPLE ANTIBIOTIC. ONLY BACTROBAN OR BACITRACIN TO BE APPLIED.
[2019-01-20 00:31] VITALS: BP 102/55
[2019-01-20 04:20] LABS: HEMATOCRIT 27.8 % (36-48); MEAN CORPUSCULAR HEMOGLOBIN 32.1 pg (27.0-33.0); MEAN CORPUSCULAR HGB CONC 34.3 g/dL (32.0-36.0); MEAN CORPUSCULAR VOLUME 93.7 fL (79-99); NUCLEATED RED BLOOD CELLS 0.2 % (0.0-0.19); PLATELET COUNT (AUTO) 98 K/uL (130-400); RED BLOOD CELL COUNT(AUTO) 2.96 MIL/uL (4.00-5.50); RED CELL DISTRIBUTION WIDTH 16.2 % (11.0-15.5); WHITE BLOOD COUNT (AUTO) 7.4 K/uL (4.8-10.8)
[2019-01-20 04:26] LABS: CREATININE 3.9 mg/dL (0.5-1.5); POTASSIUM 4.6 mmol/L (3.5-5.1)
[2019-01-20 04:28] VITALS: BP 125/58
[2019-01-20] MEDS: INSULIN HUMULIN R 100 UNIT/ML 3ML SQ SCH ×4 (06:34→21:00)
[2019-01-20 07:20] VITALS: BP 127/62
[2019-01-20] MEDS: CALCIUM ACETATE 667 MG CAPSULE PO SCH ×3 (08:08→16:51)
[2019-01-20] MEDS: POLYETHYLENE GLYCOL 3350 17 GM POWD.PACK PO SCH (09:00)
[2019-01-20] MEDS: ASPIRIN 81MG TAB.CHEW PO SCH (09:33)
[2019-01-20] MEDS: DOCUSATE SODIUM 100 MG CAP PO SCH ×2 (09:33→20:23)
[2019-01-20] MEDS: PANTOPRAZOLE SODIUM 40 MG TABLET.DR PO SCH (09:33)
[2019-01-20] MEDS: MUPIROCIN OINTMENT 22 GM TUBE TP SCH (09:34)
[2019-01-20 11:10] VITALS: BP 120/58
[2019-01-20 15:05] VITALS: BP 126/62
[2019-01-20 19:59] VITALS: BP 132/61
[2019-01-20] MEDS: ATORVASTATIN CALCIUM 20 MG TABLET PO SCH (20:23)
[2019-01-21] VITALS (8 sets, daily range): BP systolic 100–135; BP diastolic 48–67
[2019-01-21 04:08] LABS: HEMATOCRIT 30.4 % (36-48); MEAN CORPUSCULAR HGB CONC 33.8 g/dL (32.0-36.0); MEAN CORPUSCULAR VOLUME 94.8 fL (79-99); NUCLEATED RED BLOOD CELLS 0.7 % (0.0-0.19); PLATELET COUNT (AUTO) 112 K/uL (130-400); RED CELL DISTRIBUTION WIDTH 16.6 % (11.0-15.5); WHITE BLOOD COUNT (AUTO) 10.8 K/uL (4.8-10.8)
[2019-01-21 04:18] LABS: CREATININE 5.1 mg/dL (0.5-1.5); POTASSIUM 5.1 mmol/L (3.5-5.1)
[2019-01-21] MEDS ORDERED: INSULIN HUMULIN R 100 UNIT/ML 3ML ONE (06:33)
[2019-01-21] MEDS: INSULIN HUMULIN R 100 UNIT/ML 3ML SQ SCH ×4 (06:41→21:00)
[2019-01-21] MEDS: ACETAMINOPHEN 325 MG TAB PO PRN ×2 (10:12→20:07)
[2019-01-21] MEDS: PANTOPRAZOLE SODIUM 40 MG TABLET.DR PO SCH (10:12)
[2019-01-21] MEDS: ASPIRIN 81MG TAB.CHEW PO SCH (10:13)
[2019-01-21] MEDS: DOCUSATE SODIUM 100 MG CAP PO SCH ×2 (10:13→20:08)
[2019-01-21] MEDS: CALCIUM ACETATE 667 MG CAPSULE PO SCH ×3 (10:14→17:13)
[2019-01-21] MEDS: POLYETHYLENE GLYCOL 3350 17 GM POWD.PACK PO SCH (10:14)
[2019-01-21] MEDS: MUPIROCIN OINTMENT 22 GM TUBE TP SCH (10:15)
--- NOTE | 2019-01-21 13:17 | NUR ---
DC PLAN GAVE LIST OF SNF TO FAMILY SAID PRIMARY DECISION MAKER STEPPED OUT FOR LUNCH. TASHA WILL CONTINUE TO FOLLOW. Addendum: 01/21/19 at 1320 by ZANE LOYD RN CM Amended: Links added.
[2019-01-21] MEDS: ATORVASTATIN CALCIUM 20 MG TABLET PO SCH (20:07)
[2019-01-22 03:40] VITALS: BP 122/53
[2019-01-22] MEDS: INSULIN HUMULIN R 100 UNIT/ML 3ML SQ SCH ×4 (05:53→20:57)
[2019-01-22 07:47] VITALS: BP 143/68
[2019-01-22] MEDS: CALCIUM ACETATE 667 MG CAPSULE PO SCH ×3 (08:18→15:59)
[2019-01-22] MEDS: DOCUSATE SODIUM 100 MG CAP PO SCH ×2 (09:00→20:53)
[2019-01-22] MEDS: POLYETHYLENE GLYCOL 3350 17 GM POWD.PACK PO SCH (09:00)
[2019-01-22] MEDS: PANTOPRAZOLE SODIUM 40 MG TABLET.DR PO SCH (09:09)
[2019-01-22] MEDS: ASPIRIN 81MG TAB.CHEW PO SCH (09:10)
[2019-01-22] MEDS: MUPIROCIN OINTMENT 22 GM TUBE TP SCH (09:18)
--- NOTE | 2019-01-22 11:45 | NUR ---
PT. WILL WAIT UNTIL AFTER HD TO EAT LUNCH.
[2019-01-22 11:53] VITALS: BP 118/54
[2019-01-22] MEDS ORDERED: LIDOCAINE/PRILOCAINE CREAM 30 GM TUBE TP SCH (12:00)
--- NOTE | 2019-01-22 12:25 | NUR ---
DR. Charisma MONDRAGON IN ROOM SPEAKING WITH PT. AND PT.'S DAUGHTER AT BEDSIDE. HD IN PROGRESS.
--- NOTE | 2019-01-22 14:10 | NUR ---
DC PLAN SPOKE TO SEVERAL FAMILY MEMBERS. FINALLY GOT ANSWER HEMAL FROM DAUGHTER ON PHONE FOR ILIA. INFO SENT TO REP PENDING VISIT. REYRR DONE. Addendum: 01/22/19 at 1411 by ZANE LOYD RN CM Amended: Links added.
--- NOTE | 2019-01-22 14:23 | NUR ---
DR. Charisma JULES IN ROOM SPEAKING WITH PT.
[2019-01-22] MEDS: ACETAMINOPHEN 325 MG TAB PO PRN (14:50)
--- NOTE | 2019-01-22 14:55 | NUR ---
PT GIVEN 325MG TYLENOL PO PER REQUEST FOR HD PAIN
[2019-01-22 15:28] VITALS: BP 117/62
--- NOTE | 2019-01-22 15:56 | NUR ---
Nutrition Intervention: Nutrition screen based on LOS x 8 days. S/P Groin exploration for femoral bleeding left, with repair of artery(01/14/19). Pt. S/P Dysphagia eval on 01/18/19- [facility] rec. [facility]. Soft/Chopped texture. Pt. on 75gm CCD Renal Dialysis [facility] Soft Finely chopped diet. Pt. reports poor p.o. intake. Spoke with pt. regarding nutritional supplementation and pt. agreed to try. Labs reviewed(Alb 2.6, BUN 71, Creat 5.1, GFR 9, BG 206). Pt. reports has been on HD for ~3 years. Pt. stated has been educated in the past on diet and declined need for diet education at this time. Recommendations: 1) Rec. Vanilla or Willard Nepro BID with B'fast and dinner meals. 2) Continue to monitor pt's nutritional status. 3) Consult RD as nutrition concerns arise. Addendum: 01/22/19 at [address] Amended: Links added.
[2019-01-22 19:51] VITALS: BP 133/59
[2019-01-22] MEDS: ATORVASTATIN CALCIUM 20 MG TABLET PO SCH (20:53)
--- NOTE | 2019-01-22 21:30 | NUR ---
advanced nursing professor Bilateral pedal pulses present with Doppler. Left groin sutures dry and intact. Visible hematoma to left groin, still has some redness, bruising with some water blisters to area. Pt alert and oriented X4, no distress noted. Daughter present at bedside.
[2019-01-22 23:57] VITALS: BP 135/58
[2019-01-23 04:04] LABS: HEMATOCRIT 30.5 % (36-48); MEAN CORPUSCULAR HEMOGLOBIN 32.6 pg (27.0-33.0); MEAN CORPUSCULAR HGB CONC 34.2 g/dL (32.0-36.0); MEAN CORPUSCULAR VOLUME 95.5 fL (79-99); NUCLEATED RED BLOOD CELLS 0.4 % (0.0-0.19); PLATELET COUNT (AUTO) 105 K/uL (130-400); RED BLOOD CELL COUNT(AUTO) 3.19 MIL/uL (4.00-5.50); RED CELL DISTRIBUTION WIDTH 16.6 % (11.0-15.5); WHITE BLOOD COUNT (AUTO) 10.9 K/uL (4.8-10.8)
[2019-01-23 04:20] LABS: CREATININE 4.8 mg/dL (0.5-1.5); POTASSIUM 4.6 mmol/L (3.5-5.1)
[2019-01-23] MEDS: INSULIN HUMULIN R 100 UNIT/ML 3ML SQ SCH ×2 (05:34→11:30)
[2019-01-23 07:00] VITALS: BP 128/56
[2019-01-23] MEDS: CALCIUM ACETATE 667 MG CAPSULE PO SCH ×3 (07:50→12:09)
[2019-01-23] MEDS: ASPIRIN 81MG TAB.CHEW PO SCH (07:50)
[2019-01-23] MEDS: PANTOPRAZOLE SODIUM 40 MG TABLET.DR PO SCH (07:51)
[2019-01-23] MEDS: MUPIROCIN OINTMENT 22 GM TUBE TP SCH (07:51)
[2019-01-23] MEDS: DOCUSATE SODIUM 100 MG CAP PO SCH (07:51)
[2019-01-23] MEDS: POLYETHYLENE GLYCOL 3350 17 GM POWD.PACK PO SCH (07:52)
--- NOTE | 2019-01-23 08:00 | NUR ---
ASSESSMENT PT IS AAOX3 DENIES CP DENIES SOB DENIES NV NO COMPLAINTS, LAYING UPRIGHT IN BED. BREATHING PATTERN IS EVEN AND UNLABORED. FAMILY IS AT BEDSIDE. DRESSING TO LEFT GROIN CHANGED, TOLERATED WELL. CALL LIGHT WITHIN REACH.
[2019-01-23 11:00] VITALS: BP 124/45
--- NOTE | 2019-01-23 13:35 | NUR ---
STATUS RESTING IN BED, BREATHING PATTERN IS EVEN AND UNLABORED. DAUGHTER IS AT BEDSIDE, CALL LIGHT WITHIN REACH.
--- NOTE | 2019-01-23 15:01 | NUR ---
KEITH VIERA FROM [facility] CALLED AT 1455 TO SAY PATIENT IS ACCEPTED. LET NURSING KNOW. WILL GO VIA EMS FOR PATIENT SAFETY. Addendum: 01/23/19 at 1502 by ZANE LOYD RN CM Amended: Links added.
--- NOTE | 2019-01-23 15:30 | NUR ---
DC ORDER RECEIVED FROM DR MONDRAGON VIA PHONE
[2019-01-23 15:39] VITALS: BP 119/56
--- NOTE | 2019-01-23 15:56 | NUR ---
REPORT GIVEN TO TONEY RAMIREZ [facility] AWAITING EMS FOR TRANSPORT
--- NOTE | 2019-01-23 16:15 | NUR ---
LEFT UPPER CHEST CENTRAL LINE REMOVED CATH TIP INTACT, PRESSURE HELD X15 MINS. DRESSING IN PLACE. HEMOSTASIS ACHIEVED.
--- NOTE | 2019-01-23 17:00 | NUR ---
DC TO [facility] VIA EMS WITH ALL BELONGINGS TAKEN BY FAMILY. TELE PACK REMOVED.
[2019-01-23] MEDS ORDERED: ATORVASTATIN CALCIUM 20 MG TABLET PO SCH (21:00)
[2019-01-24] MEDS ORDERED: FOLIC ACID/VITAMIN B COMP W-C 1 MG CAP/TAB PO SCH (09:00)
== END 2019-01-23 17:00 | DRG 252 ==
LOC: DAH 06:28 → EDHIP 06:29 → DAH 17:30 → 2CH 17:37 → 2DH 01-19 14:36
PROVIDERS: ADMIT Internal Medicine Nephrology; ATTEND Internal Medicine Nephrology
PROC: 04QL0ZZ Repair Left Femoral Artery, Open Approach (ICD-10-PCS; 2019-01-14)
PROC: 0JCM0ZZ Extirpation of Matter from Left Upper Leg Subcutaneous Tissue and Fascia, Open Approach (ICD-10-PCS; 2019-01-14)
PROC: B41D1ZZ Fluoroscopy of Aorta and Bilateral Lower Extremity Arteries using Low Osmolar Contrast (ICD-10-PCS; 2019-01-14)
PROC: 30233K1 Transfusion of Nonautologous Frozen Plasma into Peripheral Vein, Percutaneous Approach (ICD-10-PCS; 2019-01-14)
PROC: 30233N1 Transfusion of Nonautologous Red Blood Cells into Peripheral Vein, Percutaneous Approach (ICD-10-PCS; 2019-01-14)
PROC: 30233R1 Transfusion of Nonautologous Platelets into Peripheral Vein, Percutaneous Approach (ICD-10-PCS; 2019-01-14)
PROC: 5A1945Z Respiratory Ventilation, 24-96 Consecutive Hours (ICD-10-PCS; 2019-01-14)
PROC: 0BH17EZ Insertion of Endotracheal Airway into Trachea, Via Natural or Artificial Opening (ICD-10-PCS; 2019-01-14)
PROC: B41F1ZZ Fluoroscopy of Right Lower Extremity Arteries using Low Osmolar Contrast (ICD-10-PCS; 2019-01-14)
PROC: 047M34Z Dilation of Right Popliteal Artery with Drug-eluting Intraluminal Device, Percutaneous Approach (ICD-10-PCS; principal; 2019-01-14 17:21)
PROC: 5A1D70Z Performance of Urinary Filtration, Intermittent, Less than 6 Hours Per Day (ICD-10-PCS; 2019-01-15)
PROC: 5A1D70Z Performance of Urinary Filtration, Intermittent, Less than 6 Hours Per Day (ICD-10-PCS; 2019-01-17)
PROC: 5A1D70Z Performance of Urinary Filtration, Intermittent, Less than 6 Hours Per Day (ICD-10-PCS; 2019-01-19)
PROC: 5A1D70Z Performance of Urinary Filtration, Intermittent, Less than 6 Hours Per Day (ICD-10-PCS; 2019-01-22)
DX: I72.4 Aneurysm of artery of lower extremity (principal); J96.00 Acute respiratory failure, unspecified whether with hypoxia or hypercapnia; R57.8 Other shock; N18.6 End stage renal disease; G92 Toxic encephalopathy; D62 Acute posthemorrhagic anemia; I12.0 Hypertensive chronic kidney disease with stage 5 chronic kidney disease or end stage renal disease; E46 Unspecified protein-calorie malnutrition; E87.2 Acidosis; E11.51 Type 2 diabetes mellitus with diabetic peripheral angiopathy without gangrene; D50.0 Iron deficiency anemia secondary to blood loss (chronic); D69.6 Thrombocytopenia, unspecified; E11.21 Type 2 diabetes mellitus with diabetic nephropathy; E11.22 Type 2 diabetes mellitus with diabetic chronic kidney disease; E66.01 Morbid (severe) obesity due to excess calories; E78.5 Hyperlipidemia, unspecified; I25.10 Atherosclerotic heart disease of native coronary artery without angina pectoris; I27.20 Pulmonary hypertension, unspecified; M79.81 Nontraumatic hematoma of soft tissue; Z68.27 Body mass index [BMI] 27.0-27.9, adult; I25.2 Old myocardial infarction; Z95.5 Presence of coronary angioplasty implant and graft; Z99.2 Dependence on renal dialysis
CPT/HCPCS: 36415; 36430; 37226; 71045; 75630; 76882; 80048; 80053; 80074; 82330; 82435; 82803; 82947; 82948; 83605; 83735; 84100; 84132; 84295; 85014; 85018; 85025; 85027; 85347; 85384; 85610; 85730; 86850; 86900; 86901; 86922; 86927; 90935; 92610; 93970; 94002; 94003; 94150; 97039; 99156; 99157; A4606; C1769; C1893; C1894; G0378; J0330; J0360; J0461; J0610; J1265; J1644; J1815; J2001; J2250; J2405; J2704; J3010; J3490; J7030; P9016; P9017; P9034; P9045; Q9967